=== PATIENT | female | born 1955 | race Asian ===

== ENCOUNTER 2021-01-21 19:26 | Emergency (ER) | payer MEDICARE, OTHER ==
[~2021-01-21] VITALS: Ht 149.9 cm; Wt 48.2 kg
[2021-01-21 19:29] VITALS: BP 164/71
[2021-01-21] MEDS ORDERED: ACETAMINOPHEN 325 MG TABLET PO ONE (19:45)
[2021-01-21] MEDS ORDERED: POVIDONE-IODINE 10% 15 ML SOLUTION UD TP ONE (19:45)
[2021-01-21] MEDS ORDERED: PERTUSS(ACELL),DIPH,TET VAC/PF 0.5 ML SYRINGE IM. ONE (19:45)
== END 2021-01-21 20:10 | disposition home or self-care (01) ==
LOC: EMS 19:33
DX: S81.831A Puncture wound without foreign body, right lower leg, initial encounter (principal); E11.9 Type 2 diabetes mellitus without complications; E78.00 Pure hypercholesterolemia, unspecified; I10 Essential (primary) hypertension; W54.0XXA Bitten by dog, initial encounter; Y93.89 Activity, other specified; Y92.89 Other specified places as the place of occurrence of the external cause; Y99.8 Other external cause status
CPT/HCPCS: 82962; 90471; 90715; 99283

== ENCOUNTER → 2023-02-15 | Outpatient (CLI) | payer MEDICARE, OTHER ==
[~2023-02-15] VITALS: Ht 149.9 cm; Wt 50.0 kg
[~2023-02-15] MED LIST: FERR325T27 PO; METF-1211 PO; PRAV20TA4 PO
[2023-02-15 10:31] VITALS: BP 137/59; PULSE 85; RESP 18; TEMP 97.7; O2SAT 98
== END | disposition home or self-care (01) ==
LOC: SRCNTR 10:05
PROVIDERS: ATTEND Internal Medicine
DX: R05.9 Cough, unspecified (principal); R06.02 Shortness of breath; E11.9 Type 2 diabetes mellitus without complications; E78.5 Hyperlipidemia, unspecified; G47.33 Obstructive sleep apnea (adult) (pediatric)
CPT/HCPCS: G0463; Z7500

== ENCOUNTER → 2023-02-22 | Outpatient (CLI) | payer MEDICARE, OTHER | END | disposition home or self-care (01) | LOC: RADMN 09:34 | PROVIDERS: ATTEND Internal Medicine | DX: N28.1 Cyst of kidney, acquired (principal); J44.9 Chronic obstructive pulmonary disease, unspecified; H70.92 Unspecified mastoiditis, left ear; I25.10 Atherosclerotic heart disease of native coronary artery without angina pectoris; M47.814 Spondylosis without myelopathy or radiculopathy, thoracic region; Z90.49 Acquired absence of other specified parts of digestive tract | CPT/HCPCS: 70480; 71250 ==

== ENCOUNTER → 2023-04-12 | Outpatient (CLI) | payer MEDICARE, OTHER ==
[~2023-04-12] VITALS: Ht 149.9 cm; Wt 51.0 kg
[2023-04-12 10:34] VITALS: BP 137/75; PULSE 75; RESP 19; TEMP 98.1; O2SAT 98
== END | disposition home or self-care (01) ==
LOC: SRCNTR 10:20
PROVIDERS: ATTEND Internal Medicine
DX: R05.9 Cough, unspecified (principal); K21.9 Gastro-esophageal reflux disease without esophagitis; E78.5 Hyperlipidemia, unspecified; E11.9 Type 2 diabetes mellitus without complications
CPT/HCPCS: G0463

== ENCOUNTER → 2023-07-10 | Outpatient (CLI) | payer MEDICARE, OTHER ==
[~2023-07-10] VITALS: Ht 149.9 cm; Wt 49.0 kg
[2023-07-10 11:25] VITALS: BP 140/69; PULSE 78; RESP 18; TEMP 97.9; O2SAT 97
== END | disposition home or self-care (01) ==
LOC: SRCNTR 09:49
PROVIDERS: ATTEND Internal Medicine
DX: R05.9 Cough, unspecified (principal); K21.9 Gastro-esophageal reflux disease without esophagitis; G47.33 Obstructive sleep apnea (adult) (pediatric); J98.4 Other disorders of lung; E11.9 Type 2 diabetes mellitus without complications; E78.5 Hyperlipidemia, unspecified; Z79.899 Other long term (current) drug therapy; Z88.8 Allergy status to other drugs, medicaments and biological substances
CPT/HCPCS: G0463; Z7500